=== PATIENT | male | born 1960 | race Caucasian/White ===

== ENCOUNTER 2022-02-28 12:31 | Outpatient (CLI) | payer BC, SELFPAY ==
--- NOTE | ~2022-02-28 | MR_ITS ---
EXAMINATION: [facility] EX[facility] DATE: 02/28/2022 13:20 INDICATION: Low back pain. TECHNIQUE: Multi-sequential, multiplanar MR images of the lumbar spine were obtained without contrast . Sagittal T1, T2, T2 fat saturation images. Axial T2 weighted images. There is no prior study for comparison. FINDINGS: There is mild thoracolumbar dextroscoliosis. There is moderate disc disease L4-5 and L5-S1, mild at the other lumbar levels. There is 4 mm retrolisthesis L5 on S1. The vertebral bodies are oth erwise aligned. The conus medullaris terminates at the T12-L1 level and has normal signal intensity a nd morphology. There are no suspicious marrow signal abnormalities. Paraspinal soft tissue is unrema rkable. Level by level evaluation: T12-L1: Disc does not extend beyond the endplate margin. Facet arthropathy: None. Neural foraminal stenosis: No stenosis. Central canal stenosis: No stenosis. L1-L2: Disc does not extend beyond the endplate margin. Facet arthropathy: Mild. Neural foraminal stenosis: No stenosis. Central canal stenosis: No stenosis. L2-L3: Disc does not extend beyond the endplate margin. Facet arthropathy: Mild to moderate. Neural foraminal stenosis: No stenosis. Central canal stenosis: No stenosis. L3-L4: There is a mild diffuse disc bulge. Facet arthropathy: Mild to moderate. Neural foraminal stenosis: Mild left. Central canal stenosis: Mild. L4-L5: There is a moderate diffuse disc bulge, superimposed moderate-sized central protrusion Facet arthropathy: Mild to moderate bilateral, right more than left. Neural foraminal stenosis: No stenosis. Central canal stenosis: Moderate. L5-S1: There is a moderate to large diffuse disc bulge. Facet arthropathy: Mild to moderate. Neural foraminal stenosis: Moderate bilateral, right more than left. Central canal stenosis: Mild to moderate. IMPRESSION: 1. Moderate lower lumbar spondylosis. 2. L5-S1 grade 1 retrolisthesis. Reviewed, dictated and finalized at location B.
== END 2022-02-28 12:32 | disposition home or self-care (01) ==
PROVIDERS: PCP Family Medicine; Visit Provider Chiropractor Rehabilitation
DX: M79.669 Pain in unspecified lower leg (principal); M47.26 Other spondylosis with radiculopathy, lumbar region
CPT/HCPCS: 72148

== ENCOUNTER 2024-11-30 18:54 | Emergency (ER) | payer BC, SELFPAY ==
[2024-11-30 19:22] VITALS: BP 115/73; PULSE 77; RESP 18; TEMP 36.2; O2SAT 93
--- NOTE | 2024-11-30 20:48 | ED.GENADULT ---
HPI - General Adult General Chief complaint: Wound/Laceration <Jesus Holliday MD - Last Filed: 11/30/24 23:02> Stated complaint: laceration to L. index finger <Jesus Holliday MD - Last Filed: 11/30/24 23:02> Time Seen by Provider: 11/30/24 20:22 <Jesus Holliday MD - Last Filed: 11/30/24 23:02> History of Present Illness HPI narrative: 64-year-old male presenting to the emergency department for evaluation of a laceration to his right index finger. Patient was preparing dinner when he inadvertently cut his finger. Patient reports has difficulty getting the bleeding to stop. Patient is not on any blood thinners. <Jesus Holliday MD - Last Filed: 11/30/24 23:02> Related Data Allergies/adverse reactions: Allergies Allergy/AdvReac Type Severity Reaction Status Date / Time NKDA Allergy Mild Uncoded 03/30/10 08:39 <Jesus Holliday MD - Last Filed: 11/30/24 23:02> Review of Systems Review of Systems: All systems reviewed & are unremarkable except as noted in HPI and below <Jesus Holliday MD - Last Filed: 11/30/24 23:02> Exam Narrative: APPEARANCE: Well appearing, no pain, no distress, well-nourished. HEAD: normocephalic, atraumatic. EYES: PERRLA/EOMI, conjunctivae clear. NOSE: Normal no drainage EARS:TMS clear with good light reflex. THROAT: Pharynx clear, no exudate. NECK: Supple. No adenopathy, no masses. RESPIRATORY: Airway patent, respirations nonlabored. Clear to auscultation bilaterally, no rales, rhonchi, wheezing. CARDIOVASCULAR: Regular rate and rhythm without murmurs rubs or gallops. ABDOMINAL: Soft, nontender, nondistended, normal bowel sounds MUSCULOSKELETAL: Moves all extremities. Strength/ROM intact, No edema, No calf tenderness. NEURO: Alert. Cranial nerves II through XII intact. Good gait. Good coordination SKIN: Warm, dry. Normal Color Skin: laceration to right index finger <Jesus Holliday MD - Last Filed: 11/30/24 23:02> Course Vital Signs Vital signs: Vital Signs Temperature 97.2 F L 11/30/24 19:22 Pulse Rate 77 11/30/24 19:22 Respiratory Rate 18 11/30/24 19:22 Blood Pressure 115/73 11/30/24 19:22 Pulse Oximetry 93 11/30/24 19:22 Temperature 97.2 F L 11/30/24 19:22 Pulse Rate 77 11/30/24 19:22 Respiratory Rate 18 11/30/24 19:22 Blood Pressure 115/73 11/30/24 19:22 Pulse Oximetry 93 11/30/24 19:22 <Jesus Holliday MD - Last Filed: 11/30/24 23:02> Vital Signs Temperature 97.2 F L 11/30/24 19:22 Pulse Rate 77 11/30/24 19:22 Respiratory Rate 18 11/30/24 19:22 Blood Pressure 115/73 11/30/24 19:22 Pulse Oximetry 93 11/30/24 19:22 Temperature 97.2 F L 11/30/24 19:22 Pulse Rate 77 11/30/24 19:22 Respiratory Rate 18 11/30/24 19:22 Blood Pressure 115/73 11/30/24 19:22 Pulse Oximetry 93 11/30/24 19:22 <Leatha Hamm PA-C - Last Filed: 11/30/24 21:27> Procedures Laceration Laceration 1: Date: 11/30/24 <Leatha Hamm PA-C - Last Filed: 11/30/24 21:27> Time: 21:27 <Leatha Hamm PA-C - Last Filed: 11/30/24 21:27> Site: upper extremity <Leatha Hamm PA-C - Last Filed: 11/30/24 21:27> Side (If applicable): left <MARIE Garcia Last Filed: 11/30/24 21:27> Size (cm): 3 <MARIE Garcia Last Filed: 11/30/24 21:27> Description: irregular <Leatha Hamm PA-C - Last Filed: 11/30/24 21:27> Depth: simple, single layer <MARIE Garcia Last Filed: 11/30/24 21:27> Local Anesthetic: lidocaine 1% <MARIE Garcia Last Filed: 11/30/24 21:27> Amount of anesthesia used (mL): 2 <MARIE Garcia Last Filed: 11/30/24 21:27> Pre-repair: wound explored, irrigated and irrigated extensively <Leatha Hamm PA-C - Last Filed: 11/30/24 21:27> ====== Skin Level ======: Skin layer closed with: nylon <MARIE Garcia Last Filed: 11/30/24 21:27> Size (cm): 5-0 <MARIE Garcia Last Filed: 11/30/24 21:27> Number of sutures: 3 <MARIE Garcia Last Filed: 11/30/24 21:27> Technique: simple, interrupted <MARIE Garcia Last Filed: 11/30/24 21:27> ====== Subcutaneous Layer ======: ====== Muscle Layer ======: ====== Tendon Layer ======: Medical Decision Making [facility] Narrative Medical decision making narrative: 64-year-old male presents emergency department for evaluation for laceration to his right index finger. Laceration was repaired as described the procedure note. All questions concerns were addressed patient was well-appearing at time of discharge. <Jesus Holliday MD - Last Filed: 11/30/24 23:02> Vital Signs Vital Signs: Vital Signs Temperature 97.2 F L 11/30/24 19:22 Pulse Rate 77 11/30/24 19:22 Respiratory Rate 18 11/30/24 19:22 Blood Pressure 115/73 11/30/24 19:22 Pulse Oximetry 93 11/30/24 19:22 Temperature 97.2 F L 11/30/24 19:22 Pulse Rate 77 11/30/24 19:22 Respiratory Rate 18 11/30/24 19:22 Blood Pressure 115/73 11/30/24 19:22 Pulse Oximetry 93 11/30/24 19:22 <Jesus Holliday MD - Last Filed: 11/30/24 23:02> Vital Signs Temperature 97.2 F L 11/30/24 19:22 Pulse Rate 77 11/30/24 19:22 Respiratory Rate 18 11/30/24 19:22 Blood Pressure 115/73 11/30/24 19:22 Pulse Oximetry 93 11/30/24 19:22 Temperature 97.2 F L 11/30/24 19:22 Pulse Rate 77 11/30/24 19:22 Respiratory Rate 18 11/30/24 19:22 Blood Pressure 115/73 11/30/24 19:22 Pulse Oximetry 93 11/30/24 19:22 <Leatha Hamm PA-C - Last Filed: 11/30/24 21:27> Discharge Plan Discharge Clinical Impression: Laceration <Jesus Holliday MD - Last Filed: 11/30/24 23:02> Patient Disposition: Home, Self-Care <Jesus Holliday MD - Last Filed: 11/30/24 23:02> Condition: Stable <Jesus Holliday MD - Last Filed: 11/30/24 23:02> Instructions: Antibiotic Form, Laceration (ED) <Jesus Holliday MD - Last Filed: 11/30/24 23:02> Additional Instructions: Sutures need to be removed in 7-10 days. Have close follow-up with your primary care physician. <Jesus Holliday MD - Last Filed: 11/30/24 23:02> Patient Language: Kitt[place] <Jesus Holliday MD - Last Filed: 11/30/24 23:02> Follow-up/Referrals: [place],aVnce Willson DO [Primary Care Provider] - <Jesus Holliday MD - Last Filed: 11/30/24 23:02>
[2024-11-30] MEDS: LIDOCAINE 1% LOCAL INJ 10 ML VIAL INFILTRATE (20:49)
== END 2024-11-30 21:45 | disposition home or self-care (01) ==
PROVIDERS: Emergency Provider Emergency Medicine; PCP Family Medicine
DX: S61.211A Laceration without foreign body of left index finger without damage to nail, initial encounter (principal); W26.0XXA Contact with knife, initial encounter; Y93.G1 Activity, food preparation and clean up
CPT/HCPCS: 12002; 99282; J2003